=== PATIENT | female | born 2000 | race African-American/Black ===

== ENCOUNTER 2024-05-18 15:09 | Emergency (ER) | payer SELFPAY ==
[~2024-05-18] VITALS: Ht 165.1 cm; Wt 54.0 kg
[2024-05-18 15:18] VITALS: O2SAT 99
[2024-05-18] MEDS: HYDROCODONE/ACETAMINOPHEN 5/325MG TABLET PO STA (15:41)
[2024-05-18] MEDS ORDERED: NAPR-681 PO (17:21)
[2024-05-18] MEDS ORDERED: CYCL5TAB3 MT (17:21)
[2024-05-18 17:40] VITALS: BP 100/69; PULSE 65; RESP 20; TEMP 36.7; O2SAT 99
== END 2024-05-18 17:45 | disposition home or self-care (01) ==
LOC: ER 15:09
DX: S39.012A Strain of muscle, fascia and tendon of lower back, initial encounter (principal); R07.89 Other chest pain; X58.XXXA Exposure to other specified factors, initial encounter; Y93.89 Activity, other specified; Y92.410 Unspecified street and highway as the place of occurrence of the external cause; Y99.8 Other external cause status
CPT/HCPCS: 71045; 72100; 81025; 99284